=== PATIENT | male | born 1985 ===

== ENCOUNTER 2022-06-06 06:16 | Outpatient (REF) | payer MEDICAID, OTHER, SELFPAY ==
--- NOTE | ~2022-06-06 | XR_ITS ---
EXAMINATION: XR KNEE AP STANDING, BILATERAL XR KNEE, LEFT CLINICAL INDICATION: Pain. COMPARISON: None. TECHNIQUE: AP standing bilateral knees. 2 views left knee. FINDINGS: Standing knee image demonstrates some loss of medial and lateral joint space bilaterally. There is some tibial spine spurring on the left. Some minimal early patellofemoral spurring is noted. The patella appears fairly well seated on the sunrise image. 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
--- NOTE | ~2022-06-06 | XR_ITS ---
EXAMINATION: XR KNEE AP STANDING, BILATERAL XR KNEE, LEFT CLINICAL INDICATION: Pain. COMPARISON: None. TECHNIQUE: AP standing bilateral knees. 2 views left knee. FINDINGS: Standing knee image demonstrates some loss of medial and lateral joint space bilaterally. There is some tibial spine spurring on the left. Some minimal early patellofemoral spurring is noted. The patella appears fairly well seated on the sunrise image. 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
== END 2022-06-06 06:17 | disposition home or self-care (01) ==
LOC: HO.HOSX 06:16
PROVIDERS: Visit Provider Physician Assistant
DX: M23.52 Chronic instability of knee, left knee (principal)
CPT/HCPCS: 73560; 73565; 99202